=== PATIENT | female | born 1985 | race African-American/Black ===

== ENCOUNTER 2016-06-15 22:34 | Emergency (ER) | payer BC ==
[~2016-06-15 22:34] MED LIST: CIPR-9 PO; IBUP-232 PO
[2016-06-15 22:36] VITALS: BP 134/80; PULSE 76; RESP 16; TEMP 97.9; O2SAT 99
[2016-06-16 00:51] VITALS: BP 117/69; PULSE 65; RESP 18; O2SAT 100
[2016-06-16 02:51] LABS: BACTERIA, URINE MOD /hpf; BLOOD, URINE NEG (NEG); COMMENT (UR) CULTURE INDICATED; CULTURE IF INDICATED CULTURE INDICATED; GLUCOSE,URINE NEG (NEG); KETONE, URINE NEG (NEG); NITRITE,URINE NEG (NEG); PH, URINE 6.5 (5.0-8.5); SQUAMOUS EPITHELIAL CELL URINE 46 /hpf (0-5); URINE COLOR LIGHT-YELLOW (YELLW/STRAW)
[2016-06-16 03:00] VITALS: BP 137/80; PULSE 64; RESP 14; O2SAT 100
[2016-06-16 03:15] LABS: AUTOMATED NEUTROPHIL # 2.4 TH/MM3 (1.8-7.7); BASOPHIL % 0.5 % (0.0-2.0); EOSINOPHIL # 0.2 TH/MM3 (0-0.4); EOSINOPHIL % 2.8 % (0.0-4.0); HEMATOCRIT 38.5 % (35.0-46.0); HEMO FLAGS DIFF FINAL; LYMPH % 46.3 % (9.0-44.0); LYMPHOCYTE # 2.7 TH/MM3 (1.0-4.8); MEAN CORPUSCULAR HGB CONC 34.8 % (32.0-36.0); MONO % 7.9 % (0.0-8.0); NEUT % 42.5 % (16.0-70.0); PLATELET COUNT 186 TH/MM3 (150-450); RED BLOOD COUNT 4.05 MIL/MM3 (4.00-5.30); RED CELL DISTRIBUTION WIDTH 13.6 % (11.6-17.2); WHITE BLOOD COUNT 5.7 TH/MM3 (4.0-11.0)
[2016-06-16] MEDS ORDERED: HYDROmorphone HCL PF 1 MG/ML VIAL IV PUSH ONE (03:30)
[2016-06-16] MEDS ORDERED: ONDANSETRON HCL 4 MG/2 ML VIAL IV PUSH ONE (03:30)
[2016-06-16] MEDS ORDERED: SODIUM CHLOR 0.9% 1000 ML INJ 1,000 ML IV ONE (03:30)
--- NOTE | 2016-06-16 03:37 | RADRPT ---
EXAM DATE/TIME: 06/16/2016 03:01 [place] COMPARISON: CT ABDOMEN & PELVIS W/O CONTRAST, August 17, 2015, 0:55. INDICATIONS : Right flank pain along painful urination and blood ORAL CONTRAST: No oral contrast ingested. RADIATION DOSE: 5.24 CTDIvol (mGy) MEDICAL HISTORY : Renal calculi. SURGICAL HISTORY : Tubal ligation. Umbilical hernia repair. ENCOUNTER: Initial ACUITY: 2 days PAIN SCALE: 8/10 LOCATION: Right flank TECHNIQUE: Volumetric scanning of the abdomen and pelvis was performed. Using automated exposure control and ad justment of the mA and/or kV according to patient size, radiation dose was kept as low as reasonably achievable to obtain optimal diagnostic quality images. FINDINGS: LOWER LUNGS: The visualized lower lungs are clear. LIVER: Homogeneous density without lesion. There is no dilation of the biliary tree. No calcified gallston es. SPLEEN: Normal size without lesion. PANCREAS: Within normal limits. KIDNEYS: Normal in size and shape. There is no mass, stone, or hydronephrosis. ADRENAL GLANDS: Within normal limits. VASCULAR: There is atherosclerotic calcification of the abdominal and pelvic vasculature. BOWEL/MESENTERY: The stomach, small bowel, and colon demonstrate no acute abnormality. There is no free intraperitone al air or fluid. ABDOMINAL WALL: Within normal limits. RETROPERITONEUM: There is no lymphadenopathy. BLADDER: No wall thickening or mass. REPRODUCTIVE: Within normal limits. Small amount of free fluid in the deep pelvis INGUINAL: There is no lymphadenopathy or hernia. MUSCULOSKELETAL: Within normal limits for patient age. CONCLUSION: 1. Small amount of free fluid in the deep pelvis. This is within the range of physiologic for a menst ruating female. 2. Atherosclerotic calcification of the regional vasculature. 3. Otherwise negative. Jared Benedict MD on June 16, 2016 at 3:31 Board Certified Radiologist. This report was verified electronically.
[2016-06-16 03:40] LABS: ALT (GPT) 29 U/L (10-53); ANION GAP 8 MEQ/L (5-15); AST (GOT) 18 U/L (15-37); BICARBONATE 29.9 MEQ/L (21.0-32.0); BLOOD UREA NITROGEN 6 MG/DL (7-18); CHLORIDE 103 MEQ/L (98-107); GLOMERULAR FILTRATION RATE 141 ML/MIN (>89); POTASSIUM 3.7 MEQ/L (3.5-5.1); SODIUM (NA) 141 MEQ/L (136-145)
[2016-06-16 03:43] LABS: ALKALINE PHOSPHATASE 70 U/L (45-117); TOTAL BILIRUBIN ADULT 0.3 MG/DL (0.2-1.0)
[2016-06-16] MEDS ORDERED: ZOFR4TAB3 SL (05:00)
[2016-06-16] MEDS ORDERED: MOTR200T4 PO (05:00)
--- NOTE | 2016-06-16 05:00 | PD ---
HPI Chief Complaint: Flank/Kidney Pain Time Seen by Provider: 02:48 Travel History International Travel<30 days: No Contact w/Intl Traveler<30days: No Traveled to known affect area: No History of Present Illness HPI 30-year-old female with history of previous uterine ablation, presents to the ER today because of 2 days of waxing waning right sided abdominal and flank pains which she rates as an 8 out of 10. She has been nauseous and vomiting. She has had some blood in the urine and some urinary urgency. She denies any fevers, diarrhea, or any other symptoms. She does not know any exacerbating or alleviating factors. Modifying Factors: None Associated Signs & Symptoms: Right sided abdominal and flank pains, nausea, urinary symptoms Risk Factors: Uterine ablation PFSH Past Medical History Diminished Hearing: No Kidney Stones: Yes ?: Not : 2 Para: 2 Miscarriage: 0 : 0 Tubal Ligation: Yes Past Surgical History Abdominal Surgery: Yes (HERNIA ) Gynecologic Surgery: Yes Hysterectomy: No Social History Alcohol Use: Yes (OCCASIONALLY) Tobacco Use: No (VAPOR) Substance Use: No Allergies-Medications (Allergen,Severity, Reaction): Coded Allergies: Fioricet (Verified Allergy, Severe, 06/15/16) Keflex (Verified Allergy, Severe, 06/15/16) Reported Meds & Prescriptions Reported Meds & Active Scripts Active Ibuprofen 600 Mg Tab 600 Mg PO Q8HR PRN Review of Systems Except as stated in HPI: all other systems reviewed are Neg Physical Exam Narrative GENERAL: Well-nourished, well-developed young -[place] female patient in mild distress. SKIN: Warm and dry. HEAD: Normocephalic. EYES: No scleral icterus. No injection or drainage. NECK: Supple, trachea midline. CARDIOVASCULAR: Regular rate and rhythm without murmurs, gallops, or rubs. RESPIRATORY: Breath sounds equal bilaterally. No accessory muscle use. GASTROINTESTINAL: Abdomen soft, non-tender, nondistended. MUSCULOSKELETAL: No cyanosis, or edema. BACK: Nontender without obvious deformity. Right CVA tenderness. Data Data Last Documented VS Vital Signs Date Time Temp Pulse Resp B/P Pulse Ox O2 Delivery O2 Flow Rate FiO2 06/16/16 03:00 64 14 137/80 100 Room Air 06/15/16 22:36 97.9 Orders Urinalysis - C+S If Indicated (06/16/16 01:47) Ed Urine Pregnancytest Poc (06/16/16 01:47) Complete Blood Count With Diff (06/16/16 01:47) Comprehensive Metabolic Panel (06/16/16 01:47) Ct Abd/Pel W/O Iv Contrast (06/16/16 02:48) Urine Culture (06/16/16 02:16) Hydromorphone Pf Inj (Dilaudid Pf Inj) (06/16/16 03:30) Ondansetron Inj (Zofran Inj) (06/16/16 03:30) Sodium Chlor 0.9% 1000 Ml Inj (Ns 1000 M (06/16/16 03:30) Labs Laboratory Tests Test 06/16/16 06/16/16 02:16 02:55 Urine Color LIGHT-YELLOW Urine Turbidity CLOUDY Urine pH 6.5 Urine Specific Watkins 1.011 Urine Protein TRACE mg/dL Urine Glucose (UA) NEG mg/dL Urine Ketones NEG mg/dL Urine Occult Blood NEG Urine Nitrite NEG Urine Bilirubin NEG Urine Urobilinogen LESS THAN 2.0 MG/DL Urine Leukocyte Esterase TRACE Urine RBC 1 /hpf Urine WBC 4 /hpf Urine Squamous Epithelial 46 /hpf Cells Urine Amorphous Sediment RARE Urine Bacteria MOD /hpf Microscopic Urinalysis Comment CULTURE INDICATED White Blood Count 5.7 TH/MM3 Red Blood Count 4.05 MIL/MM3 Hemoglobin 13.4 GM/DL Hematocrit 38.5 % Mean Corpuscular Volume 95.0 FL Mean Corpuscular Hemoglobin 33.0 PG Mean Corpuscular Hemoglobin 34.8 % Concent Red Cell Distribution Width 13.6 % Platelet Count 186 TH/MM3 Mean Platelet Volume 8.6 FL Neutrophils (%) (Auto) 42.5 % Lymphocytes (%) (Auto) 46.3 % Monocytes (%) (Auto) 7.9 % Eosinophils (%) (Auto) 2.8 % Basophils (%) (Auto) 0.5 % Neutrophils # (Auto) 2.4 TH/MM3 Lymphocytes # (Auto) 2.7 TH/MM3 Monocytes # (Auto) 0.5 TH/MM3 Eosinophils # (Auto) 0.2 TH/MM3 Basophils # (Auto) 0.0 TH/MM3 CBC Comment DIFF FINAL Differential Comment Sodium Level 141 MEQ/L Potassium Level 3.7 MEQ/L Chloride Level 103 MEQ/L Carbon Dioxide Level 29.9 MEQ/L Anion Gap 8 MEQ/L Blood Urea Nitrogen 6 MG/DL Creatinine 0.60 MG/DL Estimat Glomerular Filtration 141 ML/MIN Rate Random Glucose 88 MG/DL Calcium Level 9.2 MG/DL Total Bilirubin 0.3 MG/DL Aspartate Amino Transf 18 U/L (AST/SGOT) Alanine Aminotransferase 29 U/L (ALT/SGPT) Alkaline Phosphatase 70 U/L Total Protein 7.4 GM/DL Albumin 4.0 GM/DL MDM Medical Decision Making Medical Screen Exam Complete: Yes Emergency Medical Condition: Yes Medical Record Reviewed: Yes Interpretation(s) Laboratory Tests Test 06/16/16 06/16/16 02:16 02:55 Urine Turbidity CLOUDY (CLEAR) Urine Leukocyte Esterase TRACE (NEG) Urine Bacteria MOD /hpf (NONE) Lymphocytes (%) (Auto) 46.3 % (9.0-44.0) Blood Urea Nitrogen 6 MG/DL (7-18) Last 24 hours Impressions Abdomen/Pelvis CT 06/16/16 0248 Signed Impressions: Service Date/Time: Thursday, June 16, 2016 03:01 - CONCLUSION: 1. Small amount of free fluid in the deep pelvis. This is within the range of physiologic for a menstruating female. 2. Atherosclerotic calcification of the regional vasculature. 3. Otherwise negative. Jared Benedict MD Differential Diagnosis Renal colic versus pyelonephritis versus UTI versus musculoskeletal Narrative Course Lab work did not indicate significant UTI. CAT scan did not show any signs of acute intra-abdominal processes. Patient was given IV fluids and pain medications in the ER. Patient is doing well in the ER and at this point my plan would be to release her with follow-up to primary care physician. Return for any worsening in symptoms as necessary. The plan was discussed with her and she states understanding. Diagnosis Primary Impression: Right flank pain Med/Other Pt SpecificInfo: Prescription(s) given Scripts Ondansetron Odt (Zofran Odt)4 Mg Tab4 Mg SL Q6HR PRN (Nausea/Vomiting) #7 TAB Ref 0 Prov:Alber Thomason MD 06/16/16 Ibuprofen (Motrin Ib)200 Mg [id number] Mg PO Q6H PRN (PAIN SCALE 1 TO 10) #20 TAB Ref 0 Prov:Alber Thomason MD 06/16/16 Disposition: 01 DISCHARGE HOME Condition: Stable Alber Thomason MD Jun 16, 2016 05:00
== END 2016-06-16 05:50 | disposition home or self-care (01) ==
LOC: NEPE 22:34
DX: R10.84 Generalized abdominal pain (principal); Z87.442 Personal history of urinary calculi
CPT/HCPCS: 74176; 80053; 81001; 84703; 85025; 87086; 96361; 96374; 96375; 99284; J1170; J2405; J7030

== ENCOUNTER 2016-07-08 15:44 | Emergency (ER) | payer BC ==
[~2016-07-08] VITALS: Ht 170.2 cm; Wt 76.0 kg
[~2016-07-08 15:44] MED LIST changes: -CIPR-9 PO; +MOTR200T4 PO; +ZOFR4TAB3 SL
[2016-07-08 15:45] VITALS: BP 148/87; PULSE 90; RESP 20; TEMP 98; O2SAT 95
--- NOTE | 2016-07-08 16:08 | PD ---
Physical Exam Date Seen by Provider: Jul 08, 2016 Time Seen by Provider: 16:03 Narrative Patient seen in triage with 3 days of Upper Respiratory symptoms including: Sinus congestion, Sore Throat, Post Nasal Drip and Sinus BRONSON. Patient has been using OTC meds without improvement. Patients BRONSON is worse today. Patient denies SOB, Wheeze, or Chest Congestion. No Nausea, Vomitting or Diarrhea. Vital signs stable. Patient awaiting room placement. Data Data Last Documented VS Vital Signs Date Time Temp Pulse Resp B/P Pulse Ox O2 Delivery O2 Flow Rate FiO2 07/08/16 15:45 98.0 90 20 148/87 95 Room Air [facility] Medical Record Reviewed: Yes Supervised Visit with ORLIN: Yes Condition: Stable Misael Griffith Jul 08, 2016 16:08
--- NOTE | 2016-07-08 17:19 | PD ---
HPI Chief Complaint: Headache Time Seen by Provider: 17:19 Travel History International Travel<30 days: No Contact w/Intl Traveler<30days: No Traveled to known affect area: No History of Present Illness HPI 30-year-old female, with history of migraines, presents to the emergency Department with complaint of headache, nasal congestion, sore throat 3 days. Reports sinus pressure. Reports low-grade fever of 99.0. Denies lump in throat , difficulty swallowing, unusual drooling. Denies chest pain, shortness breath , abdominal pain. Reports nausea without vomiting. Has taken multiple over-the -counter medications, ibuprofen, and Tylenol with no relief of symptoms. 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 No known relieving or aggravating factors. Allergies to Fioricet and Keflex. No other modifying factors or associated signs and symptoms. PFSH Past Medical History Diminished Hearing: No Kidney Stones: Yes ?: Not : 2 Para: 2 Miscarriage: 0 : 0 Tubal Ligation: Yes Past Surgical History Abdominal Surgery: Yes (HERNIA ) Gynecologic Surgery: Yes Hysterectomy: No Social History Alcohol Use: Yes (OCCASIONALLY) Tobacco Use: No (VAPOR) Substance Use: No Allergies-Medications (Allergen,Severity, Reaction): Coded Allergies: Fioricet (Verified Allergy, Severe, 07/08/16) Keflex (Verified Allergy, Severe, 07/08/16) Reported Meds & Prescriptions Reported Meds & Active Scripts Active Nasonex Nasal Asher (Mometasone Furoate) 50 Mcg/Act Naspr 2 Asher EACH NARE DAILY PRN Ibuprofen 800 Mg Tab 800 Mg PO Q6HR PRN Amoxicillin 500 Mg Cap 500 Mg PO BID 10 Days Zofran Odt (Ondansetron Odt) 4 Mg Tab 4 Mg SL Q6HR PRN Motrin Ib (Ibuprofen) 200 Mg Tab 600 Mg PO Q6H PRN Ibuprofen 600 Mg Tab 600 Mg PO Q8HR PRN Review of Systems Except as stated in HPI: all other systems reviewed are Neg Physical Exam Narrative GENERAL: Well-nourished, well-developed female patient, in no acute distress SKIN: Warm and dry. No rash. HEAD: Atraumatic. Normocephalic. EYES: Pupils equal and round at 3 mm with brisk reaction. No scleral icterus. No injection or drainage. PERRLA. ENT: Mucosa pink and moist. Oropharynx with erythema; without edema or exudates. No uvular edema. No uvular, palatal, or tonsillar deviation. Airway patent. EARS: Bilateral pinnae and external canals appear within normal limits. Bilateral tympanic membranes without erythema, dullness or perforation. NECK: Trachea midline. No lymphadenopathy. CARDIOVASCULAR: Regular rate and rhythm. No murmur appreciated. RESPIRATORY: No accessory muscle use. Clear to auscultation. Breath sounds equal bilaterally. GASTROINTESTINAL: Abdomen soft, non-tender, nondistended. Hepatic and splenic margins not palpable. Bowel sounds are active 4 quadrants. MUSCULOSKELETAL: No obvious deformities. No clubbing. No cyanosis. No edema. NEUROLOGICAL: Awake and alert. Oriented 3. No obvious cranial nerve deficits. Motor grossly within normal limits. Normal speech. Moves all extremities. 5/5 strength to all extremities. PSYCHIATRIC: Appropriate mood and affect; insight and judgment normal. Data Data Last Documented VS Vital Signs Date Time Temp Pulse Resp B/P Pulse Ox O2 Delivery O2 Flow Rate FiO2 07/08/16 15:45 98.0 90 20 148/87 95 Room Air Orders Ketorolac Inj (Toradol Inj) (07/08/16 17:30) Diphenhydramine (Benadryl) (07/08/16 17:30) Ondansetron Odt (Zofran Odt) (07/08/16 17:30) Influenzae A/B Antigen (07/08/16 17:19) Group A Rapid Strep Screen (07/08/16 17:19) Strep Culture (Group A) (07/08/16 17:20) [facility] Medical Decision Making Medical Screen Exam Complete: Yes Emergency Medical Condition: Yes Medical Record Reviewed: Yes Differential Diagnosis Sinusitis, upper respiratory infection, migraine headaches, influenza, strep pharyngitis, viral illness Narrative Course 30-year-old female with history of migraine headaches presents with headache with cold/flu symptoms. Patient is afebrile and nontoxic-appearing. She reports low-grade fever of 99.0. Platelets and sore throat. Toradol, Benadryl , Zofran ordered. Influenza and rapid strep ordered. 1802: Influenza negative. Rapid strep negative. Discussed viral illness and symptom treatment. Patient reports improvement in headache. Patient requesting antibiotics. Amoxicillin, Nasonex nasal spray, ibuprofen prescribed for home. Patient verbalizes understanding and agreement with treatment plan. Patient is medically cleared and stable for discharge. Discussed reasons to return to the emergency department. Instructed patient to follow up with primary care provider. Patient agrees with treatment plan. The patients vital signs are stable and the patient is stable for outpatient follow-up and treatment. Patient discharged home, stable and in no acute distress. Diagnosis Primary Impression: Upper respiratory infection Qualified Code: J06.9 - Upper respiratory tract infection, unspecified type Additional Impression: Headache Qualified Code: R51 - Nonintractable headache, unspecified chronicity pattern , unspecified headache type Referrals: Primary Care Physician Patient Instructions: Acute Headache (ED), General Instructions, Upper Respiratory Infection (ED) Departure Forms: Tests/Procedures, Work Release Enter return to work date: Jul 10, 2016 Additional Instructions: Antibiotics as prescribed and complete full course Ibuprofen or Tylenol as instructed and as needed for fever/pain [id number] cough and cold medications as directed and as needed for symptom management Get plenty of sleep/rest Drink plenty of fluids to prevent dehydration; popsicles and Gatorade Use an air humidifier/turn off ceiling fans Follow-up with primary care provider Return immediately to the emergency department with worsening of symptoms Med/Other Pt SpecificInfo: Prescription(s) given Scripts Mometasone Nasal Asher (Nasonex Nasal Asher)50 Mcg/Act Naspr2 Asher EACH NARE DAILY PRN (NASAL CONGESTION) #1 BOTTLE Ref 0 Prov:Rimma HaywoodP 07/08/16 Ibuprofen 800 Mg [id number] Mg PO Q6HR PRN (PAIN) #30 TAB Ref 0 Prov:Rimma HaywoodP 07/08/16 Amoxicillin 500 Mg Ybs127 Mg PO BID 10 Days Ref 0 Prov:Rimma HaywoodP 07/08/16 Disposition: DISCHARGE HOME Condition: Stable Rimma Haywood Jul 08, 2016 17:19
[2016-07-08] MEDS ORDERED: KETOROLAC TROMETHAMINE 60 MG/2 ML (IM) VIAL IM ONE (17:30)
[2016-07-08] MEDS ORDERED: diphenhydrAMINE HCL 50 MG CAP PO ONE (17:30)
[2016-07-08] MEDS ORDERED: ONDANSETRON ODT 4 MG TAB PO ONE (17:30)
[2016-07-08] MEDS ORDERED: MOME17I EACH NARE (18:04)
[2016-07-08] MEDS ORDERED: AMOX500C PO (18:04)
[2016-07-08] MEDS ORDERED: IBUP800T23 PO (18:04)
== END 2016-07-08 18:43 | disposition home or self-care (01) ==
LOC: NEPB 15:44
DX: J06.9 Acute upper respiratory infection, unspecified (principal); R51 Headache
CPT/HCPCS: 87081; 87804; 87880; 96372; 99283; J1885; Q0163

== ENCOUNTER 2017-02-10 19:07 | Emergency (ER) | payer SELFPAY ==
[~2017-02-10] VITALS: Ht 170.2 cm; Wt 77.0 kg
[~2017-02-10 19:07] MED LIST changes: +AMOX500C PO; +IBUP1TAB7 PO; +MOME17I EACH NARE
[2017-02-10 19:10] VITALS: BP 154/78; PULSE 97; RESP 15; TEMP 98.5; O2SAT 97
[2017-02-10] MEDS ORDERED: HYDR-3366 PO (19:36)
[2017-02-10] MEDS ORDERED: NAPR220C22 (19:37)
[2017-02-10] MEDS ORDERED: IBUP1TAB7 PO (19:49)
[2017-02-10] MEDS ORDERED: BACT800T5 PO (19:49)
--- NOTE | 2017-02-10 19:51 | PD ---
HPI Chief Complaint: Skin Problem Time Seen by Provider: 19:42 Travel History International Travel<30 days: No Contact w/Intl Traveler<30days: No Traveled to known affect area: No History of Present Illness HPI 31-year-old female presents to the emergency department complaining of a lump to her right upper thigh/groin area she noticed on Tuesday. She said it was draining a purulent drainage that was like "cottage cheese." It stopped draining and now is hardened. Denies a lump is associated with her labia or vaginal area. Denies abnormal vaginal discharge, odor. Denies dysuria. Denies fever, vomiting. Has been using warm compresses for symptomatic management. Pain is 7/10. Describes it as a soreness. Irritated with walking. Relieved with rest. Has no other medical complaints. Allergies to acetaminophen, butalbital, caffeine, cephalexin. No other modifying factors or associated signs and symptoms. PFSH Past Medical History Cardiovascular Problems: Yes (MURMUR) Diminished Hearing: No Kidney Stones: Yes Tetanus Vaccination: > 5 Years ?: Not LMP: 02/01/17 : 2 Para: 2 Miscarriage: 0 : 0 Tubal Ligation: Yes Past Surgical History Abdominal Surgery: Yes (HERNIA ) Gynecologic Surgery: Yes Hysterectomy: No Social History Alcohol Use: Yes (OCCASIONALLY) Tobacco Use: No (VAPOR) Substance Use: No Allergies-Medications (Allergen,Severity, Reaction): Coded Allergies: acetaminophen (Unverified Allergy, Severe, 02/10/17) butalbital (Unverified Allergy, Severe, 02/10/17) caffeine (Unverified Allergy, Severe, 02/10/17) cephalexin (Unverified Allergy, Severe, 02/10/17) Reported Meds & Prescriptions Reported Meds & Active Scripts Active Ibuprofen 800 Mg Tab 800 Mg PO Q6HR PRN Bactrim DS (Sulfamethoxazole-Trimethoprim) 800-160 Mg Tab 1 Tab PO BID 10 Days Reported Aleve (Naproxen Sodium) 220 Mg Capsule [place] (Hydrocodone-Acetaminophen) 10-325 Mg Tab 1 Tab PO Q6H PRN Review of Systems Except as stated in HPI: all other systems reviewed are Neg Physical Exam Narrative GENERAL: Well-nourished, well-developed white female patient, in no acute distress; afebrile, nontoxic-appearing SKIN: There is an indurated area to the right inner upper thigh, groin area which measures about 1.5 cm in diameter. It is nonfluctuant and there is no pointing or drainage. There is very minimal surrounding erythema and no lymphangitis to the right groin area. HEAD: Atraumatic. Normocephalic. EYES: Pupils equal and round. No scleral icterus. No injection or drainage. ENT: Mucosa pink and moist. Airway patent. NECK: Trachea midline. CARDIOVASCULAR: Regular rate. RESPIRATORY: No accessory muscle use. GASTROINTESTINAL: Flat. MUSCULOSKELETAL: No obvious deformities. No clubbing. No cyanosis. No edema. NEUROLOGICAL: Awake and alert. Oriented 3. No obvious cranial nerve deficits. Motor grossly within normal limits. Normal speech. PSYCHIATRIC: Appropriate mood and affect; insight and judgment normal. Data Data Last Documented VS Vital Signs Date Time Temp Pulse Resp B/P (MAP) Pulse Ox O2 Delivery O2 Flow Rate FiO2 02/10/17 19:10 98.5 97 15 154/78 (103) 97 Room Air Orders Orders Ed Discharge Order (02/10/17 19:51) MDM Medical Decision Making Medical Screen Exam Complete: Yes Emergency Medical Condition: Yes Medical Record Reviewed: Yes Differential Diagnosis Sebaceous cyst, folliculitis, cellulitis, abscess Narrative Course 31-year-old female with a lump to her right groin area. Sounds consistent with a sebaceous cyst. There is very minimal erythema surrounding the area. It is nonfluctuant. I will prescribe Bactrim and ibuprofen for home. Discussed reasons for the patient to return to the emergency department for incision and drainage. Patient verbalized understanding and agreement. Instructed patient to follow up with primary care provider. Patient verbalizes understanding and agreement with treatment plan. Patient is medically cleared and stable for discharge. Discussed reasons to return to the emergency department. Patient agrees with treatment plan. The patients vital signs are stable and the patient is stable for outpatient follow-up and treatment. Patient discharged home, stable and in no acute distress. Diagnosis Primary Impression: Groin lump Referrals: Primary Care Physician Patient Instructions: Abscess (ED), Abscess Follow-up (ED), General Instructions Additional Instructions: Complete full course of antibiotics Warm compresses to the affected area Keep area clean and dry Ibuprofen or Tylenol as directed and as needed for pain and inflammation Follow-up with primary care provider Return to emergency department immediately with worsening of symptoms Med/Other Pt SpecificInfo: Prescription(s) given Scripts Ibuprofen (Ibuprofen) 800 Mg Tab 800 MG PO Q6HR Y for PAIN, #30 TAB 0 Refills Prov: Rimma Haywood 02/10/17 Sulfamethoxazole-Trimethoprim (Bactrim DS) 800-160 Mg Tab 1 TAB PO BID for Infection for 10 Days, #20 TAB 0 Refills Prov: Rimma Haywood 02/10/17 Disposition: 01 DISCHARGE HOME Condition: Stable Rimma Haywood Feb 10, 2017 19:51
== END 2017-02-10 20:49 | disposition home or self-care (01) ==
LOC: NEPD 19:07
DX: R19.09 Other intra-abdominal and pelvic swelling, mass and lump (principal)
CPT/HCPCS: 99283

== ENCOUNTER 2017-06-30 18:28 | Emergency (ER) | payer SELFPAY ==
[~2017-06-30] VITALS: Ht 170.2 cm; Wt 75.0 kg
[~2017-06-30 18:28] MED LIST changes: -AMOX500C PO; +BACT800T5 PO; +HYDR-3366 PO; -IBUP-232 PO; -MOME17I EACH NARE; -MOTR200T4 PO; +NAPR220C22; -ZOFR4TAB3 SL
[2017-06-30 18:41] VITALS: BP 188/126; PULSE 102; RESP 16; TEMP 98.6; O2SAT 98
[2017-06-30 19:42] VITALS: BP 168/72; PULSE 72; RESP 20; TEMP 98; O2SAT 98
[2017-06-30] MEDS ORDERED: SODIUM CHLOR 0.9% 1000 ML INJ 1,000 ML IV ONE (19:44)
[2017-06-30] MEDS ORDERED: ONDANSETRON HCL 4 MG/2 ML VIAL IV PUSH ONE (19:45)
[2017-06-30] MEDS ORDERED: KETOROLAC TROMETHAMINE 30 MG/ML (IVP) VIAL IV PUSH ONE (19:45)
--- NOTE | 2017-06-30 19:51 | PD ---
HPI Chief Complaint: Abdominal Pain Time Seen by Provider: 19:35 Travel History International Travel<30 days: No Contact w/Intl Traveler<30days: No Traveled to known affect area: No History of Present Illness HPI PATIENT DESCRIBED SHARP, RIGHT FLANK PAIN, RAD TO RLQ, 8/10, REDDISH DISCOLORATION TO URINE WELL OVER LAST FEW HOURS....DENIES ANY ALLEVIATING.AGGRAVATING FACTORS....DENIES ASSOC FACTORS SUCH FEVER, BRONSON/NECK/ CP/ AT THIS TIME, ALSO NO N/V/D/RASH AT THIS TIME EITHER. ALL: FIORICET AND KEFLEX CAUSES HIVES PMHX SIG FOR HERNIA REPAIR, BTL, KIDNEY STONES, UTERINE ABLATION SINCE 2016. PFSH Past Medical History Medical History: Denies Significant Hx Cardiovascular Problems: Yes (MURMUR) Diminished Hearing: No Kidney Stones: Yes Immunizations Current: Yes Tetanus Vaccination: Unknown Influenza Vaccination: Yes ?: Not : 2 Para: 2 Miscarriage: 0 : 0 Tubal Ligation: Yes Past Surgical History Abdominal Surgery: Yes (HERNIA ) Gynecologic Surgery: Yes Hysterectomy: No Social History Alcohol Use: Yes (OCCASIONALLY) Tobacco Use: No (VAPOR) Substance Use: No Allergies-Medications (Allergen,Severity, Reaction): Coded Allergies: acetaminophen (Unverified Allergy, Severe, 06/30/17) butalbital (Unverified Allergy, Severe, 06/30/17) caffeine (Unverified Allergy, Severe, 06/30/17) cephalexin (Unverified Allergy, Severe, 06/30/17) Reported Meds & Prescriptions Reported Meds & Active Scripts Active No Active Prescriptions or Reported Medications Review of Systems Except as stated in HPI: all other systems reviewed are Neg General / Constitutional: No: Fever Eyes: No: Visual changes HENT: No: Headaches Cardiovascular: No: Chest Pain or Discomfort Respiratory: No: Shortness of Breath Gastrointestinal: No: Abdominal Pain Genitourinary: Positive: Flank Pain Musculoskeletal: No: Pain Skin: No Rash Neurologic: No: Weakness Psychiatric: No: Depression Endocrine: No: Polydipsia Hematologic/Lymphatic: No: Easy Bruising Physical Exam Narrative GENERAL: SKIN: Warm and dry. HEAD: Atraumatic. Normocephalic. EYES: Pupils equal and round. No scleral icterus. No injection or drainage. ENT: No nasal bleeding or discharge. Mucous membranes pink and moist. NECK: Trachea midline. No JVD. CARDIOVASCULAR: Regular rate and rhythm. RESPIRATORY: No accessory muscle use. Clear to auscultation. Breath sounds equal bilaterally. GASTROINTESTINAL: Abdomen soft, non-tender, nondistended. MUSCULOSKELETAL: Extremities without clubbing, cyanosis, or edema. No obvious deformities. NEUROLOGICAL: Awake and alert. No obvious cranial nerve deficits. Motor grossly within normal limits. Five out of 5 muscle strength in the arms and legs. Normal speech. PSYCHIATRIC: Appropriate mood and affect; insight and judgment normal. Data Data Last Documented VS Vital Signs Date Time Temp Pulse Resp B/P (MAP) Pulse Ox O2 Delivery O2 Flow Rate FiO2 06/30/17 19:42 98.0 72 20 168/72 (104) 98 Room Air Orders Orders Comprehensive Metabolic Panel (06/30/17 19:44) Urinalysis - C+S If Indicated (06/30/17 19:44) Ed Urine Pregnancytest Poc (06/30/17 19:44) Ct Abd/Pel W/O Iv Contrast (06/30/17 19:44) Ecg Monitoring (06/30/17 19:44) Iv Access Insert/Monitor (06/30/17 19:44) Ketorolac Inj (Toradol Inj) (06/30/17 19:45) Ondansetron Inj (Zofran Inj) (06/30/17 19:45) Sodium Chlor 0.9% 1000 Ml Inj (Ns 1000 M (06/30/17 19:44) Cbc No Diff, Includes Plts (06/30/17 20:28) Labs Laboratory Tests Test 06/30/17 20:20 06/30/17 20:25 Blood Urea Nitrogen 9 MG/DL Creatinine 0.67 MG/DL Random Glucose 91 MG/DL Total Protein 7.4 GM/DL Albumin 3.7 GM/DL Calcium Level 8.7 MG/DL Alkaline Phosphatase 85 U/L Aspartate Amino Transf (AST/SGOT) 20 U/L Alanine Aminotransferase (ALT/SGPT) 30 U/L Total Bilirubin 0.2 MG/DL Sodium Level 140 MEQ/L Potassium Level 3.8 MEQ/L Chloride Level 105 MEQ/L Carbon Dioxide Level 26.7 MEQ/L Anion Gap 8 MEQ/L Estimat Glomerular Filtration Rate 123 ML/MIN Urine Color RED Urine Turbidity HAZY Urine pH 8.0 Urine Specific [place] 1.021 Urine Protein 30 mg/dL Urine Glucose (UA) NEG mg/dL Urine Ketones NEG mg/dL Urine Occult Blood LARGE Urine Nitrite NEG Urine Bilirubin NEG Urine Urobilinogen LESS THAN 2.0 MG/DL Urine Leukocyte Esterase TRACE Urine RBC /hpf Urine Squamous Epithelial Cells 6 /hpf Urine Mucus FEW /lpf Microscopic Urinalysis Comment CULT NOT INDICATED MDM Medical Decision Making Medical Screen Exam Complete: Yes Emergency Medical Condition: Yes Medical Record Reviewed: Yes Differential Diagnosis PYELO V PREG RELATED V KIDNEY STONE Narrative Course CMP SHOWS NORMAL ELECTROLYTES, NORMAL KIDNEY FUNCTIONS AND NORMAL LIVER FUNCTIONS CT READ BY RADIOLOGIST 1. No acute findings. Previous free fluid in the pelvis has improved. Mild constipation. Diagnosis Primary Impression: Right flank pain Patient Instructions: Flank Pain (ED), General Instructions, Urinary Tract Infection in Women (ED) Scripts Tramadol (Ultram) 50 Mg Tab 50 MG PO Q8H Y for PAIN, #15 TAB 0 Refills Prov: Rusty Florian MD 06/30/17 Nitrofurantoin Monohydrate Macrocrystals (Macrobid) 100 Mg Capsule 100 MG PO BID for Infection, #14 CAP 0 Refills Prov: Rusty Florian MD 06/30/17 Disposition: 01 DISCHARGE HOME Condition: Stable Rusty Florian MD Jun 30, 2017 19:51
[2017-06-30 21:09] LABS: ALBUMIN 3.7 GM/DL (3.4-5.0); AST (GOT) 20 U/L (15-37); BICARBONATE 26.7 MEQ/L (21.0-32.0); BLOOD UREA NITROGEN 9 MG/DL (7-18); CALCIUM 8.7 MG/DL (8.5-10.1); CHLORIDE 105 MEQ/L (98-107); CREATININE 0.67 MG/DL (0.50-1.00); GLOMERULAR FILTRATION RATE 123 ML/MIN (>89); GLUCOSE,RANDOM 91 MG/DL (74-106); SODIUM (NA) 140 MEQ/L (136-145)
[2017-06-30 21:14] LABS: ALKALINE PHOSPHATASE 85 U/L (45-117); ALT (GPT) 30 U/L (10-53); TOTAL BILIRUBIN ADULT 0.2 MG/DL (0.2-1.0); TOTAL PROTEIN 7.4 GM/DL (6.4-8.2)
--- NOTE | 2017-06-30 21:17 | RADRPT ---
EXAM DATE/TIME: 06/30/2017 20:46 [facility] COMPARISON: CT ABDOMEN & PELVIS W/O CONTRAST, June 16, 2016, 3:01. INDICATIONS : Patient complains of right side flank pain. ORAL CONTRAST: No oral contrast ingested. RADIATION DOSE: 13.35 CTDIvol (mGy) MEDICAL HISTORY : Cardiovascular disease. Renal calculi. hernia SURGICAL HISTORY : None. ENCOUNTER: Initial ACUITY: 1 day PAIN SCALE: 10/10 LOCATION: Right flank TECHNIQUE: Volumetric scanning of the abdomen and pelvis was performed. Using automated exposure control and ad justment of the mA and/or kV according to patient size, radiation dose was kept as low as reasonably achievable to obtain optimal diagnostic quality images. DICOM format image data is available electro nically for review and comparison. FINDINGS: LOWER LUNGS: The visualized lower lungs are clear. LIVER: Homogeneous density without lesion. There is no dilation of the biliary tree. No calcified gallston es. SPLEEN: Normal size without lesion. PANCREAS: Within normal limits. KIDNEYS: Normal in size and shape. There is no mass, stone, or hydronephrosis. ADRENAL GLANDS: Within normal limits. VASCULAR: There is no aortic aneurysm. BOWEL/MESENTERY: The stomach, small bowel, and colon demonstrate no acute abnormality. There is no free intraperitone al air or fluid. ABDOMINAL WALL: Within normal limits. RETROPERITONEUM: There is no lymphadenopathy. BLADDER: No wall thickening or mass. REPRODUCTIVE: Within normal limits. INGUINAL: There is no lymphadenopathy or hernia. MUSCULOSKELETAL: Within normal limits for patient age. CONCLUSION: 1. No acute findings. Previous free fluid in the pelvis has improved. Mild constipation. Jimmie Wu MD on June 30, 2017 at 21:12 Board Certified Radiologist. This report was verified electronically.
[2017-06-30 21:47] LABS: BILIRUBIN, URINE NEG (NEG); BLOOD, URINE LARGE (NEG); GLUCOSE,URINE NEG (NEG); KETONE, URINE NEG (NEG); MUCUS URINE FEW /lpf (OCC); NITRITE,URINE NEG (NEG); SQUAMOUS EPITHELIAL CELL URINE 6 /hpf (0-5); URINE COLOR RED (YELLW/STRAW); URINE LEUKOCYTE ESTERASE TRACE (NEG)
[2017-06-30] MEDS ORDERED: MACR100C2 PO (22:04)
[2017-06-30] MEDS ORDERED: TRAM50 PO (22:04)
[2017-06-30] MEDS ORDERED: MORPHINE SULFATE 2 MG/ML INJ IV PUSH ONE (22:15)
[2017-06-30 22:28] VITALS: RESP 20
[2017-07-01 04:00] LABS: HEMATOCRIT 38.3 % (35.0-46.0); MEAN CELL VOLUME 95.7 FL (80.0-100.0); MEAN CORPUSCULAR HEMOGLOBIN 32.5 PG (27.0-34.0); MEAN PLATELET VOLUME 9.6 FL (7.0-11.0); PLATELET COUNT 201 TH/MM3 (150-450); RED CELL DISTRIBUTION WIDTH 13.9 % (11.6-17.2); WHITE BLOOD COUNT 5.4 TH/MM3 (4.0-11.0)
== END 2017-06-30 23:38 | disposition home or self-care (01) ==
LOC: NEPD 18:28
DX: R10.9 Unspecified abdominal pain (principal)
CPT/HCPCS: 74176; 80053; 81001; 84703; 85027; 96361; 96374; 96375; 99284; J1885; J2270; J2405; J7030